=== PATIENT | female | born 1990 | race Caucasian/White ===

== ENCOUNTER 2024-04-28 22:39 | Emergency (ER) | payer OTHER ==
[~2024-04-28] VITALS: Ht 177.8 cm; Wt 61.2 kg
[2024-04-29] MEDS ORDERED: MINERAL OIL 133 ML (PYXIS) 1 EA ENEMA RC ONE (01:07)
[2024-04-29] MEDS: MINERAL OIL 133 ML (PYXIS) 1 EA ENEMA RC ONE (01:16)
[2024-04-29] MEDS ORDERED: POLY17PO4 PO (01:48)
[2024-04-29] MEDS ORDERED: MAGN296S72 PO (01:48)
[2024-04-29 02:04] VITALS: BP 112/72; TEMP 98.1; O2SAT 100
== END 2024-04-29 02:04 | disposition home or self-care (01) ==
LOC: ER 22:51
DX: K59.00 Constipation, unspecified (principal)